=== PATIENT | female | born 1980 | race Caucasian/White ===

== ENCOUNTER 2017-01-24 22:07 | Observation (INO) ==
[2017-01-24] MEDS ORDERED: SODIUM CHLORIDE 1,000 ML IV STA (22:21)
--- NOTE | 2017-01-24 22:25 | ED.PDOC ---
General ED Provider: Dr. SHADIA BYNUM Chief Complaint: Palpitations Stated Complaint: PALPITAION, FEELING FUNNY. DIZZI,. Been drinking today 3 beers. Time Seen by Physician: 22:23 Mode of Arrival: Walk-In Information Source: Patient Primary Care Provider: HARLEY MARIEE Nursing and Triage Documentation Reviewed and Agree: Yes Cardiovascular Complaint Exam - Palpitations Complaint/Exam Symptoms Are: Still present Timing: Constant Initial Severity: Moderate Current Severity: Moderate Character: Reports: Fast Aggravating: Reports: None Alleviating: Reports: None Associated Signs and Symptoms: Reports: Dizziness. Denies: Lightheadedness, Syncope, Chest pain, Shortness of breath, Diaphoresis, Nausea, Vomiting Related Surgical History: Reports: None Cardiac Risk Factors: Reports: None Pulmonary Embolism Risk Factors: Reports: None Atrial Fibrillation Risk Factors: Reports: None Thyroid Exam: Normal Differential Diagnoses: Hypokalemia Quality Indicators for AMI: EKG in 10min. Quality Indicators for Cardiac Chest Pain: EKG in 10min. Review of Systems - Review Of Systems Constitutional: Reports: No symptoms Eyes: Reports: No symptoms Ears, Nose, Mouth, Throat: Reports: No symptoms Respiratory: Reports: No symptoms Cardiac: Reports: Lightheadedness GI: Reports: No symptoms : Reports: No symptoms Musculoskeletal: Reports: No symptoms Skin: Reports: No symptoms Neurological: Reports: No symptoms Endocrine: Reports: No symptoms Hematologic/Lymphatic: Reports: No symptoms All Other Systems: Reviewed and Negative Past Medical History - Past Medical History Previously Healthy: Yes Endocrine: Reports: None Cardiovascular: Reports: None Respiratory: Reports: None Hematological: Reports: None Gastrointestinal: Reports: None Genitourinary: Reports: None Neuro/Psych: Reports: None Musculoskeletal: Reports: None Cancer: Reports: None Last Menstrual Period: PT HAS HAD A HYSTERECTOMY - Surgical History General Surgical History: Reports: Hysterectomy, Appendectomy - Family History Family History: Reports: None - Social History Smoking Status: Current every day smoker, Heavy tobacco smoker Smoking Cessation Counseling Time: > 3 min - 10 min Hx Substance Use: No Alcohol Screening: Occasionally - Immunizations Tetanus Shot up to Date: Yes Physical Exam - Physical Exam Appearance: Ill-appearing, Well-nourished Eyes: DAMIEN, EOMI, Conjunctiva clear ENT: Ears normal, Nose normal, Oropharynx normal Respiratory: Airway patent, Breath sounds clear, Breath sounds equal, Respirations nonlabored Cardiovascular: Tachycardia GI/: Soft, Nontender, No masses, Bowel sounds normal, No Organomegaly Musculoskeletal: Normal strength, ROM intact, No edema, No calf tenderness Skin: Warm, Dry, Normal color Neurological: Sensation intact, Motor intact, Reflexes intact, Cranial nerves intact, Alert, Oriented Psychiatric: Affect appropriate, Mood appropriate Interpretation - Radiology Interpretation Radiology Interpretation By: Radiologist Radiology Results: Negative Exam Interpreted: CT Scan Re-Evaluation - Re-Evaluation Time of Re-Evaluation: 00:41 Status: Improved Critical Care Note - Critical Care Note Total Time (mins): 0 Course - Course Hematology/Chemistry: 01/24/17 22:31 01/24/17 22:31 Orders, Labs, Meds: Lab Review 01/24/17 01/24/17 22:20 22:31 WBC 10.93 H RBC 4.84 Hgb 15.1 Hct 42.7 MCV 88.2 MCH 31.2 H MCHC 35.4 RDW Coeff of Johnnie 12.7 Plt Count 356 Immature Gran % (Auto) 0.4 Neut % (Auto) 44.3 Lymph % (Auto) 43.4 Alger % (Auto) 6.8 Eos % (Auto) 4.4 Baso % (Auto) 0.7 Immature Gran # (Auto) 0.0 Neut # 4.9 Lymph # 4.7 H Alger # 0.7 Eos # 0.5 Baso # 0.1 D-Dimer (Manual) 129.21 Sodium 142 Potassium 3.0 L Chloride 106 Carbon Dioxide 26 Anion Gap 13.0 BUN 8 Creatinine 0.80 Estimated GFR (MDRD) 81.00 BUN/Creatinine Ratio 10.00 Glucose 96 Calcium 9.7 Total Bilirubin 0.25 AST 20 ALT 18 Alkaline Phosphatase 74 Total Creatine Kinase 80 Troponin I < 0.0100 Total Protein 7.4 Albumin 4.2 Globulin 3.2 Albumin/Globulin Ratio 1.31 TSH 3.569 Urine Color Yellow Urine Clarity Clear Urine pH 5.5 Ur Specific [place] <=1.005 Urine Protein Negative Urine Glucose (UA) Negative Urine Ketones Negative Urine Blood Negative Urine Nitrite Negative Urine Bilirubin Negative Urine Urobilinogen 0.2 Ur Leukocyte Esterase Negative Urine Opiates Screen Negative Ur Oxycodone Screen Negative Urine Methadone Screen Negative Ur Propoxyphene Screen Negative Ur Barbiturates Screen Negative U Tricyclic Antidepress Negative Ur Phencyclidine Scrn Negative Ur Amphetamine Screen Negative U Methamphetamines Scrn Negative U Benzodiazepines Scrn Negative Urine Cocaine Screen Negative U Cannabinoids Screen Positive Plasma/Serum Alcohol 98.5 H Orders Category Date Time Status EKG-(ED ONLY) Stat CARDIO 01/24/17 22:21 Completed ED IV/MEDIPORT/POWERPORT .ONCE EMERGENCY 01/24/17 22:21 Active BLOOD ALCOHOL Stat LAB 01/24/17 22:31 Completed CBC W/ AUTO DIFF Stat LAB 01/24/17 22:31 Completed COMPREHENSIVE METABOLIC PANEL Stat LAB 01/24/17 22:31 Completed CREATINE KINASE Stat LAB 01/24/17 22:31 Completed D-DIMER Stat LAB 01/24/17 22:31 Completed DRUG SCREEN, URINE, RAPID Stat LAB 01/24/17 22:20 Completed THYROID STIMULATING HORMONE Stat LAB 01/24/17 22:31 Completed TROPONIN I Stat LAB 01/24/17 22:31 Completed URINALYSIS C & S IF INDICATED Stat LAB 01/24/17 22:20 Completed 0.9 % Sodium Chloride [Saline Flush] MEDS 01/24/17 22:21 Ordered 1 syr IVF PRN PRN Diltiazem HCl Inj [Cardizem Inj] MEDS 01/24/17 22:34 Discontinued 15 mg IVP ONCE STA Lorazepam Inj [Ativan] MEDS 01/24/17 23:31 Discontinued 1 mg IM ONCE STA Lorazepam Inj [Ativan] MEDS 01/24/17 22:59 Discontinued 2 mg .ROUTE .STK-MED ONE Sodium Chloride 0.9% [Sodium Chloride] 1,000 ml MEDS 01/24/17 22:21 Active IV 125 mls/hr CHEST, 1V AP ONLY Stat RADS 01/24/17 22:[address] HEAD W/O CONTRAST Stat RADS 01/24/17 23:06 Completed Medications Generic Name Dose Route Start Last Admin Trade Name Freq PRN Reason Stop Dose Admin Sodium Chloride 1,000 mls @ 125 mls/hr 01/24/17 22:21 01/24/17 22:53 Sodium Chloride IV 01/25/17 06:20 125 mls/hr .Q8H STA Administration Sodium Chloride 1 syr 01/24/17 22:21 Saline Flush IVF PRN PRN To flush IV Discontinued Medications Generic Name Dose Route Start Last Admin Trade Name Freq PRN Reason Stop Dose Admin Diltiazem HCl 15 mg 01/24/17 22:34 01/24/17 22:53 Cardizem Inj IVP 01/24/17 22:35 15 mg ONCE STA Administration Lorazepam 1 mg 01/24/17 23:31 01/24/17 23:33 Ativan IM 01/24/17 23:32 Not Given ONCE STA Vital Signs: Temp Pulse Resp BP Pulse Ox 01/24/17 22:10 97.3 F L 150 H 24 124/71 98 ANNE-MARIE Risk Score ANNE-MARIE Risk Score: Risk Score Odds of by 30D 0 0.1 (0.1-0.2) 1 0.3 (0.2-0.3) 2 0.4 (0.3-0.5) 3 0.7 (0.6-0.9) 4 1.2 (1.0-1.5) 5 2.2 (1.9-2.6) 6 3.0 (2.5-3.6) 7 4.8 (3.8-6.1) Departure - Departure Time of Disposition: 00:42 Disposition: ADMITTED INPATIENT Discharge Problem: Seizure, Alcoholism Instructions: New-Onset Seizure in Adults (ED) Condition: Stable Pt referred to PMD for follow-up: No Allergies/Adverse Reactions: Allergies No Known Allergies Allergy (Verified 01/24/17 22:15) Home Medications: Ambulatory Orders Dextroamphetamine/Amphetamine [Adderall 30 Mg Tablet] 30 mg PO DAILY #7 Bupropion HCl [Wellbutrin Sr] 150 mg PO QAM #30 01/04/17 Disposition Discussed With: Patient, Family
[2017-01-24 22:32] LABS: BASOPHILS # (AUTO) 0.1 K/uL (0-0.2); BASOPHILS % (AUTO) 0.7 % (0.0-3.0); EOSINOPHILS # (AUTO) 0.5 K/ul (0.0-0.7); EOSINOPHILS % (AUTO) 4.4 % (0.0-7.0); HEMATOCRIT 42.7 % (37.0-47.0); HEMOGLOBIN 15.1 g/dl (12.0-16.0); IMMATURE GRANULOCYTE % (AUTO) 0.4 % (0.0-5.0); LYMPHOCYTES # (AUTO) 4.7 K/uL (0.60-3.4); LYMPHOCYTES % (AUTO) 43.4 (10.0-50.0); MEAN CORPUSCULAR HEMOGLOBIN 31.2 pg (27.0-31.0); MEAN CORPUSCULAR HGB CONC 35.4 (31.8-35.4); MEAN CORPUSCULAR VOLUME 88.2 fl (81.0-99.0); MONOCYTES # (AUTO) 0.7 K/uL (0.4-2.0); MONOCYTES % (AUTO) 6.8 (0-10); NEUTROPHILS # (AUTO) 4.9 K/ul (2.0-6.9); NEUTROPHILS % (AUTO) 44.3; PLATELET COUNT 356 10^3/uL (140-440); RED BLOOD COUNT 4.84 10^6/ul (4.20-5.40); WHITE BLOOD COUNT 10.93 K/ul (4.6-10.2)
[2017-01-24] MEDS ORDERED: CARDIZEM INJ IVP STA (22:34)
[2017-01-24 22:35] LABS: BILIRUBIN,URINE Negative (NEGATIVE); KETONES,URINE Negative (NEGATIVE); LEUKOCYTE ESTERASE ,URINE Negative (NEGATIVE); NITRITE,URINE Negative (NEGATIVE); PH,URINE 5.5 (5-9); PROTEIN,URINE Negative (NEGATIVE); URINE, BLOOD Negative (NEGATIVE)
[2017-01-24 22:36] LABS: ADD URINE MICROSCOPIC NO
[2017-01-24 22:51] LABS: COCAIN SCREEN,URINE NEGATIVE (NEGATIVE)
[2017-01-24] MEDS ORDERED: ATIVAN ONE (22:59)
[2017-01-24 23:12] LABS: ALANINE AMINOTRANSFERASE 18 U/L (12-78); ALBUMIN 4.2 g/dL (3.4-5.0); ALBUMIN/GLOBULIN RATIO 1.31; ALKALINE PHOSPHATASE 74 U/L (42-98); ASPARTATE AMINO TRANSFERASE 20 U/L (15-37); BILIRUBIN,TOTAL 0.25 mg/dL (0.00-1.20); BLOOD UREA NITROGEN 8 mg/dL (7-18); CALCIUM 9.7 mg/dL (8.2-10.2); CARBON DIOXIDE 26 mmol/L (21-32); CHLORIDE 106 mmol/L (98-107); CREATINE KINASE 80 U/L; GLUCOSE 96 mg/dL (70-110); SODIUM 142 mmol/L (136-145); TOTAL PROTEIN 7.4 g/dL (6.4-8.2)
[2017-01-24] MEDS ORDERED: ATIVAN IM STA (23:31)
--- NOTE | 2017-01-25 00:29 | CT ---
EXAM: CT brain without contrast HISTORY: Seizure activity TECHNIQUE: CT of the brain without intravenous contrast FINDINGS: There is no acute hemorrhage midline shift or mass effect. No hydrocephalus or abnormal extra-axial fluid collection. No significant parenchymal attenuation abnormality. The bony cranium appears normal. The visualized paranasal sinuses are clear. Soft tissues without significant abnorm ality. IMPRESSION: 1. CT of the brain within normal limits.
--- NOTE | 2017-01-25 00:31 | DI ---
Exam: Chest one-view History: Seizure activity FINDINGS: Normal cardiomediastinal contours. Normal pulmonary vasculature. No infiltrative opacit ies. No chest wall abnormality. Impression: Normal single view chest.
[2017-01-25] MEDS ORDERED: POTASSIUM CHL 10% ORAL SOL PO STA (00:50)
[2017-01-25] MEDS ORDERED: ATIVAN IVP PRN (01:01)
[2017-01-25 02:19] VITALS: BMI 23.4
[2017-01-25] MEDS: SODIUM CHLORIDE 1,000 ML IV SCH ×2 (02:29→10:08)
[2017-01-25] MEDS ORDERED: ZOFRAN 4 MG/2 ML ONE (02:53)
[2017-01-25 09:25] LABS: SERUM PREGNANCY INTERNAL QC INTERNAL QC VALID
[2017-01-25] MEDS: ZOFRAN 4 MG/2 ML IVP PRN ×2 (10:32→17:55)
[2017-01-25] MEDS ORDERED: MYLANTA SUSP PO PRN (17:44)
[2017-01-25] MEDS: ATIVAN PO PRN (19:39)
[2017-01-25] MEDS: K-DUR PO SCH (20:52)
[2017-01-26] MEDS: SODIUM CHLORIDE 1,000 ML IV SCH ×2 (00:50→16:16)
[2017-01-26] MEDS: ZOFRAN 4 MG/2 ML IVP PRN ×2 (05:43→12:51)
[2017-01-26 06:01] LABS: ANION GAP 12.6; BUN/CREATININE RATIO 7.89; CALCIUM 9.4 mg/dL (8.2-10.2); CREATININE 0.76 mg/dL (0.60-1.30); POTASSIUM 3.6 mmol/L (3.5-5.10)
[2017-01-26] MEDS: ATIVAN PO PRN ×2 (08:30→12:50)
[2017-01-26] MEDS ORDERED: PROTONIX PO STA (08:46)
[2017-01-26] MEDS: K-DUR PO SCH (09:00)
--- NOTE | 2017-01-26 09:35 | HP ---
SOURCE: The source of this information is prior knowledge of the patient, discussion with she and her and review of her current records. She is somewhat vague in details. PATIENT PROFILE: Ms. Iqbal is a 36-year-old female resident of [facility]. She was cooperative. CHIEF COMPLAINT: "She had a seizure." BRIEF HISTORY OF PRESENT ILLNESS: She is brought to the emergency room because her said she mentioned something about chest pain. Her heart rate seemed to be faster. He also says in retrospect that she wasn't acting or responding normally. She was taken to the X -ray Department and apparently when standing for her chest x-ray she had an episode of jerking or posturing. The ER called it a possible seizure. Dr. Meyer was covering and it was all discussed with him. He elected not to put her on medications but to stop her Adderall and her Wellbutrin; apparently medicines that she was taking on and off sporadically or in some fashion. Medicines that she had also been getting from Dr. Alicia, the psychiatrist. Her days spent in the Special Care Unit has been one of frustration on her part; frequently verbalizing with the nurses being dissatisfied with many things. It does not sound like she was postictal. PAST HISTORY: CHILDHOOD: Unremarkable. ALLERGIES/INTOLERANCE: DOXYCYCLINE (VOMITING), HYDROCODONE (UNKNOWN REACTION) CURRENT MEDICATIONS: (HOME) 1. Dextroamphetamine/Amphetamine (Adderall 30 mg) p.o. daily 2. Buproprion 150 mg p.o. q.a.m. HOSPITALIZATIONS/SURGERIES/PROCEDURES: [facility] 04/22 through 04/27/08 headache and aseptic meningitis; [facility] again 04/18 through 04/30/13 for left otitis externa/interna that was very significant and took some time to heal up. She had exploratory lap by Dr. Lang" in [place] years ago, STEVEN and [facility]SO for benign reasons, Dr. Prado at [facility] in January 2004 and exploratory lap after that with details unavailable. She is 4, Para 3, AB 1. HABITS: Smoker since age 18, at least than one pack per day with alcohol on a daily basis. No more than 2 to 3 and denies intoxication. She denies significant drugs though her drug screen was positive for THC. SOCIAL HISTORY: She has three children, one step; she has been currently in 2010 and earlier children were from previous arrangement. She does not work outside the home. FAMILY HISTORY: Diabetes in maternal uncle, heart disease in maternal uncle. No other family tendancies. REVIEW OF SYSTEMS: GENERAL: She says her weight has been stable and there has been no fever. INTEGUMENT: Denies open sores or wounds. HEENT: Occasional nasal congestion. No visual change. NECK: No mass or pain. CHEST: Denies cough or wheeze. CARDIOVASCULAR: Denies exertional chest pain, ankle edema. GI: Denies melena or hematochezia. She has been nauseous since this admission. : Denies dysuria. MUSCULOSKELETAL/NEUROLOGIC: No red, swollen joints. PSYCHIATRIC: Admits to chronic anxiety and depression; nonsuicidal depression. PHYSICAL EXAMINATION: VITALS: Height 5', weight 130, pulse 72, respirations 12, BP 130/82. GENERAL: Slightly older than stated age white female in no obvious distress. INTEGUMENT: Multiple tattoos. Nonicteric. Mucous membranes moist. No ankle edema. No signs of trauma. HEENT: Facial symmetry. Pupils equal, round, extraocular movements intact without nystagmus. NECK: No visible lymphadenopathy, thyromegaly, mass seen or felt and supple. CHEST: Clear. CARDIOVASCULAR: S1, S2 without murmur. No carotid bruits. Distal pulse intact. GI: Soft. No rebound, guarding, mass or tenderness. MUSCULOSKELETAL/NEUROLOGIC: No red or swollen joints, moves all four quadrants equal. Entry Level Civil Engineer are equal. Finger to nose intact. Symmetric facies. Speech is clear. PSYCHIATRIC: Oriented times three. No significant obvious anxiety or depression manifestations of facies and interaction. ASSESSMENT/PROBLEM LIST: 0. 36-year-old white female. 1. Allergies/intolerances see above. 2. Procedural history see above. 3. Family history see above. 4. Tobacco/nicotine abuse/addiction. 5. Alcohol use. 6. THC use. 7. 4, Para 3, AB 1. 8. Surgical menopause. 9. Chronic depression. 10. Chronic anxiety. 11. Allergic rhinitis. 12. Chronic headaches. 13. ADD - patient opinion. REASON FOR ADMISSION: # Palpitations # Mood change # Spell; described as some jerking and posturing but not very classic for seizure (the only issue was that she was using Wellbutrin). # Nausea # Hypopotassemia PLAN: 1. We are going to keep another night and continue fluids, repeat potassium after oral replacement in the morning. 2. We are going to try and get an EEG to at least establish it looks normal. 3. I am not going to suggest that she continue any of her medications that were mentioned on admission for now. DAMIAN
[2017-01-26 14:45] VITALS: BP 126/80; TEMP 98.1
[2017-01-26] MEDS ORDERED: PROTONIX PO SCH (17:00)
--- NOTE | 2017-01-26 17:21 | MRI ---
EXAM: Brain MRI with and without contrast. HISTORY: Seizure. COMPARISON: Head CT 01/24/2017. TECHNIQUE: Multiplanar, multisequence MR images were acquired of the brain before and after adminis tration of intravenous contrast. FINDINGS: The midline structures are central and the craniocervical junction is unremarkable. The ventricles and sulci are normal in size and configuration. There are no abnormal extra-axial fluid collections. The brain parenchyma has no diffusion restriction to suggest acute hypoperfusion or infarction. The re are a few punctate FLAIR hyperintensities in the supratentorial white matter consistent with mini mal leukomalacia. Thin section coronal FLAIR images through the hippocampi show they are normal and equal in size and signal intensity bilaterally. After administration of gadolinium, no enhancing l esions are demonstrated. There are no heterotopias or migrational anomalies. The corpus callosum i s normal in configuration. The pituitary gland is unremarkable. There are no intraorbital masses. Mild to moderate mucosal thickening is present in the right anter ior and left ethmoid air cells. There is mild mucosal thickening in both maxillary antra and minor mucosal thickening in the sphenoid sinus. Moderate adenoidal hypertrophy is present which is consid ered normal for the patient's age. Middle ears and mastoids are clear. No abnormal contrast enhanc ement is present in the internal auditory canals or labyrinthine structures. Flow voids are present in the major intracranial arteries and dural venous sinuses. IMPRESSION: 1. No intracranial mass, mesial temporal sclerosis or acute cerebral infarct. 2. Minimal leukomalacia which is nonspecific.
--- NOTE | 2017-01-29 11:20 | DS ---
PATIENT PROFILE: Ms. Iqbal is a 36-year-old female resident of [facility]. She was cooperative. CHIEF COMPLAINT: "She had a seizure." BRIEF HISTORY OF PRESENT ILLNESS: She is brought to the emergency room because her said she mentioned something about chest pain. Her heart rate seemed to be faster. He also says in retrospect that she wasn't acting or responding normally. She was taken to the X -ray Department and apparently when standing for her chest x-ray she had an episode of jerking or posturing. The ER called it a possible seizure. Dr. Meyer was covering and it was all discussed with him. He elected not to put her on medications but to stop her Adderall and her Wellbutrin; apparently medicines that she was taking on and off sporadically or in some fashion. Medicines that she had also been getting from Dr. Alicia, the psychiatrist. Her days spent in the Special Care Unit has been one of frustration on her part; frequently verbalizing with the nurses being dissatisfied with many things. It does not sound like she was postictal. PAST HISTORY: CHILDHOOD: Unremarkable. ALLERGIES/INTOLERANCE: DOXYCYCLINE (VOMITING), HYDROCODONE (UNKNOWN REACTION) CURRENT MEDICATIONS: (HOME) 1. Dextroamphetamine/Amphetamine (Adderall 30 mg) p.o. daily 2. Bupropion 150 mg p.o. q.a.m. HOSPITALIZATIONS/SURGERIES/PROCEDURES: [facility] 04/22 through 04/27/08 headache and aseptic meningitis; [facility] again 04/18 through 04/30/13 for left otitis externa/interna that was very significant and took some time to heal up. She had exploratory lap by Dr. Lang" in [place] years ago, [facility] and Molly for benign reasons, Dr. Prado at [facility] in January 2004 and exploratory lap after that with details unavailable. She is 4, Para 3, AB 1. HABITS: Smoker since age 18, at least than one pack per day with alcohol on a daily basis. No more than 2 to 3 and denies intoxication. She denies significant drugs though her drug screen was positive for THC. SOCIAL HISTORY: She has three children, one step; she has been currently in 2010 and earlier children were from previous arrangement. She does not work outside the home. FAMILY HISTORY: Diabetes in maternal uncle, heart disease in maternal uncle. No other family tendancies. REVIEW OF SYSTEMS: GENERAL: She says her weight has been stable and there has been no fever. INTEGUMENT: Denies open sores or wounds. HEENT: Occasional nasal congestion. No visual change. NECK: No mass or pain. CHEST: Denies cough or wheeze. CARDIOVASCULAR: Denies exertional chest pain, ankle edema. GI: Denies melena or hematochezia. She has been nauseous since this admission. : Denies dysuria. MUSCULOSKELETAL/NEUROLOGIC: No red, swollen joints. PSYCHIATRIC: Admits to chronic anxiety and depression; nonsuicidal depression. PHYSICAL EXAMINATION: VITALS: Height 5', weight 130, pulse 72, respirations 12, BP 130/82. GENERAL: Slightly older than stated age white female in no obvious distress. INTEGUMENT: Multiple tattoos. Nonicteric. Mucous membranes moist. No ankle edema. No signs of trauma. HEENT: Facial symmetry. Pupils equal, round, extraocular movements intact without nystagmus. NECK: No visible lymphadenopathy, thyromegaly, mass seen or felt and supple. CHEST: Clear. CARDIOVASCULAR: S1, S2 without murmur. No carotid bruits. Distal pulse intact. GI: Soft. No rebound, guarding, mass or tenderness. MUSCULOSKELETAL/NEUROLOGIC: No red or swollen joints, moves all four quadrants equal. Spd Tech are equal. Finger to nose intact. Symmetric facies. Speech is clear. PSYCHIATRIC: Oriented times three. No significant obvious anxiety or depression manifestations of facies and interaction. ASSESSMENT/PROBLEM LIST: 0. 36-year-old white female. 1. Allergies/intolerances see above. 2. Procedural history see above. 3. Family history see above. 4. Tobacco/nicotine abuse/addiction. 5. Alcohol use. 6. THC use. 7. 4, Para 3, AB 1. 8. Surgical menopause. 9. Chronic depression. 10. Chronic anxiety. 11. Allergic rhinitis. 12. Chronic headaches. 13. ADD - patient opinion. REASON FOR ADMISSION: # Palpitations # Mood change # Spell; described as some jerking and posturing but not very classic for seizure (the only issue was that she was using Wellbutrin). # Nausea # Hypopotassemia HOSPITAL COURSE: Ms. Iqbal was kept in the Special Care Unit and did not have any episodes suggesting syncope, near syncope or seizure disorder. She remained with stable vital signs. She remained afebrile. She was unable to tolerate the MRI the first day; MRI of the head with and without contrast the date of discharge and was unremarkable. We attempted to do an EEG and was unable to get one accomplished but felt this could adequately be done next week. Laboratories - had a white count of 10.93, hemoglobin 15.1, unremarkable indices and differential. D. dimer was 129. The first potassium was 3, replaced orally and went to 3.6 and there was no sign of diarrhea. There was frequent nausea, abdominal discomfort, anorexia but an adequate ability to take oral fluids; we elected to follow this as an outpatient. TSH was normal. Free T4 was slightly elevated at 1.35 and not felt to clinically represent hyperthyroidism at this point. test was negative. Urinalysis was clear and initial specific gravity was less than 1.005. Chest x-ray was normal. Telemetry monitoring was unremarkable. She openly admitted that there was significant stress leading to anxiety and depression in her life. She did not feel suicidal. We did acknowlege with her though we think she has not had a seizure, we don't think it is prudent for her right now to use Wellbutrin or in the future and even Adderall for right now. With this constellation and issue she is being discharged to the outpatient arena. DISCHARGE ASSESSMENT/PROBLEM LIST (CHANGED FROM ADMISSION): # Spell - near syncope without cause # Anxiety - chronic with possible acute component # Depression - chronic # Anorexia # Hypopotassemia without obvious cause - replaced # Palpitations with normal rhythm PLAN: 1. Discharge 2. Activity a) Gradually increase as able b) Seizure precautions (no unsupervised exposure to water, heights and machinery that would in any way lead to injury for loss of consciousness) 3. No driving until seen 4. Medications: a) Xanax 0.5 mg t.i.d. p.r.n. #21 called to [facility] b) KCL 20 mEq one by mouth each day #30 with no refill 5. Diet as able 6. Followup a) Dr. Sands - next week, call early next week for appointment b) She is scheduled for outpatient EEG at [facility] on 01/29/2017 at 12:30 PROGNOSIS: Guarded CONDITION: Stable, improved MTDD
== END 2017-01-26 18:35 | disposition home or self-care (01) ==
LOC: ED 22:07 → SCU 01-25 01:02
PROVIDERS: ADMIT Family Medicine; ATTEND Family Medicine
DX: R55 Syncope and collapse (principal); R56.9 Unspecified convulsions; E87.6 Hypokalemia; R00.2 Palpitations; R63.0 Anorexia; R42 Dizziness and giddiness; R00.0 Tachycardia, unspecified; F41.8 Other specified anxiety disorders; R11.0 Nausea; R10.9 Unspecified abdominal pain; F10.20 Alcohol dependence, uncomplicated; F17.200 Nicotine dependence, unspecified, uncomplicated; Z79.899 Other long term (current) drug therapy
CPT/HCPCS: 36415; 80048; 80053; 80306; 80307; 81001; 82550; 84439; 84443; 84484; 84703; 85025; 85379; 93005; 93010; 96360; 96361; 96365; 96366; 96375; 96376; 99285

== ENCOUNTER 2018-02-13 19:33 | Emergency (ER) ==
[2013-02-05 17:35] VITALS: BP 112/77; TEMP 97.4
--- NOTE | 2018-02-13 19:40 | ED.PDOC ---
General ED Provider: Dr. CHANDA CASTELLANOS-ER Chief Complaint: Rash Stated Complaint: ewelina got poison celeste Time Seen by Physician: 19:40 Mode of Arrival: Walk-In Information Source: Patient Primary Care Provider: HARLEY MARIEE Nursing and Triage Documentation Reviewed and Agree: Yes Reviewed sepsis parameters & appropriate labs ordered?: Yes System Inflammatory Response Syndrome: Not Applicable Sepsis Protocol: For patient's 13 years and over: Temp is 96.8 and below OR 101 and greater Pulse >90 BPM Resp >20/minute Acutely Altered Mental Status Are patient's symptoms suggestive of a new infection, such as: -Pneumonia -Skin, Soft Tissue -Endocarditis -UTI -Bone, Joint Infection -Implantable Device -Acute Abdominal Infection -Wound Infection -Meningitis -Blood Stream Catheter Infection -Unknown Skin Complaint Exam - Skin Rash/Itching Complaint/Exam Onset/Duration: 2 days Symptoms Are: Still present Initial Severity: Mild Current Severity: Moderate Potential Exposures: Reports: Plants Aggravating: Reports: None Alleviating: Reports: None Associated Signs and Symptoms: Denies: Difficulty breathing, Fever, Chills Skin Findings: Present: Urticaria, Lesions, Weeping skin Differential Diagnoses: Poison Celeste/[place] Review of Systems - Review Of Systems Constitutional: Reports: No symptoms Eyes: Reports: No symptoms Ears, Nose, Mouth, Throat: Reports: No symptoms Respiratory: Reports: No symptoms Cardiac: Reports: No symptoms GI: Reports: No symptoms : Reports: No symptoms Musculoskeletal: Reports: No symptoms Skin: Reports: Rash Neurological: Reports: No symptoms Endocrine: Reports: No symptoms Hematologic/Lymphatic: Reports: No symptoms All Other Systems: Reviewed and Negative Past Medical History - Past Medical History Previously Healthy: Yes Endocrine: Reports: Unknown Cardiovascular: Reports: Unknown Respiratory: Reports: Unknown Hematological: Reports: Unknown Gastrointestinal: Reports: Unknown Genitourinary: Reports: Unknown Neuro/Psych: Reports: Unknown Musculoskeletal: Reports: Unknown Cancer: Reports: Unknown - Surgical History General Surgical History: Reports: Unknown - Family History Family History: Reports: Unknown Physical Exam - Physical Exam Appearance: Well-appearing, No pain distress, Well-nourished Eyes: DAMIEN, EOMI, Conjunctiva clear ENT: Ears normal, Nose normal, Oropharynx normal Neck: Supple Respiratory: Airway patent Cardiovascular: RRR, Pulses normal, No rub, No murmur GI/: Soft, Nontender, No masses, Bowel sounds normal, No Organomegaly Musculoskeletal: Normal strength, ROM intact, No edema, No calf tenderness Skin: Warm, Dry, Normal color Neurological: Sensation intact, Motor intact, Reflexes intact, Cranial nerves intact, Alert, Oriented Psychiatric: Affect appropriate, Mood appropriate Critical Care Note - Critical Care Note Total Time (mins): 0 Departure - Departure Time of Disposition: 19:41 Disposition: HOME SELF-CARE Discharge Problem: Poison celeste dermatitis Instructions: Poison Celeste (ED) Condition: Good Pt referred to PMD for follow-up: Yes IPMP verified?: No Additional Instructions: prednisone 20mg x 3dasy then 10mgx 2 days then 5mgx 2 days--lidex cream apply tid for rash Disposition Discussed With: Patient, Family
[2018-02-13 19:41] VITALS: BP 125/63; TEMP 98.7; BMI 27.6
[2018-02-13] MEDS ORDERED: DECADRON 4 MG/ML SDV IM STA (19:44)
[2018-02-14 10:36] VITALS: BMI 27.6
== END 2018-02-13 20:01 | disposition home or self-care (01) ==
LOC: MERGE 19:33 → ED 19:33
DX: L23.7 Allergic contact dermatitis due to plants, except food (principal)
CPT/HCPCS: 96372; 99283

== ENCOUNTER 2018-05-08 13:07 | Emergency (ER) ==
[2018-05-08 13:20] VITALS: BP 116/55; TEMP 98.4; BMI 24.5
--- NOTE | 2018-05-08 13:41 | ED.PDOC ---
General ED Provider: Dr. ELIANA MARTIN Chief Complaint: Rash Stated Complaint: rash left fore arm exposed to poison José Manuel Time Seen by Physician: 13:40 (seen with JACQUELYN AT ALL TIMES ) Mode of Arrival: Walk-In Information Source: Patient Exam Limitations: No limitations Primary Care Provider: HARLEY MARIEE Nursing and Triage Documentation Reviewed and Agree: Yes Does patient meet sepsis criteria?: No System Inflammatory Response Syndrome: Not Applicable Sepsis Protocol: For patient's 13 years and over: Temp is 96.8 and below OR 101 and greater Pulse >90 BPM Resp >20/minute Acutely Altered Mental Status Are patient's symptoms suggestive of a new infection, such as: -Pneumonia -Skin, Soft Tissue -Endocarditis -UTI -Bone, Joint Infection -Implantable Device -Acute Abdominal Infection -Wound Infection -Meningitis -Blood Stream Catheter Infection -Unknown Skin Complaint Exam - Skin Rash/Itching Complaint/Exam Onset/Duration: 1 DAY Symptoms Are: Still present Initial Severity: Mild Current Severity: Mild Potential Exposures: Reports: Plants Aggravating: Reports: None Alleviating: Reports: None Associated Signs and Symptoms: Denies: Difficulty breathing, Fever, Chills Skin Findings: Present: Papules, Vesicles Differential Diagnoses: Allergic Reaction, Poison José Manuel/[place] Review of Systems - Review Of Systems Constitutional: Reports: No symptoms Eyes: Reports: No symptoms Ears, Nose, Mouth, Throat: Reports: No symptoms Respiratory: Reports: No symptoms Cardiac: Reports: No symptoms GI: Reports: No symptoms : Reports: No symptoms Musculoskeletal: Reports: No symptoms Skin: Reports: Rash Neurological: Reports: No symptoms Endocrine: Reports: No symptoms Hematologic/Lymphatic: Reports: No symptoms All Other Systems: Reviewed and Negative Past Medical History - Past Medical History Previously Healthy: Yes Endocrine: Reports: None, Unknown Cardiovascular: Reports: None, Unknown Respiratory: Reports: None, Unknown Hematological: Reports: None, Unknown Gastrointestinal: Reports: None, Unknown Genitourinary: Reports: None, Unknown Neuro/Psych: Reports: None, Unknown Musculoskeletal: Reports: Unknown, None Cancer: Reports: None, Unknown Last Menstrual Period: hysterectomy - Surgical History General Surgical History: Reports: Appendectomy, Hysterectomy, Unknown - Family History Family History: Reports: None, Unknown - Social History Smoking Status: Heavy tobacco smoker, Current every day smoker Hx Substance Use: No Alcohol Screening: Occasionally Physical Exam - Physical Exam Appearance: Well-appearing, No pain distress, Well-nourished Eyes: DAMIEN, EOMI, Conjunctiva clear ENT: Ears normal, Nose normal, Oropharynx normal Respiratory: Airway patent, Breath sounds clear, Breath sounds equal, Respirations nonlabored Cardiovascular: RRR, Pulses normal, No rub, No murmur GI/: Soft, Nontender, No masses, Bowel sounds normal, No Organomegaly Musculoskeletal: Normal strength, ROM intact, No edema, No calf tenderness Skin: Warm, Dry (R[employer] WITH POISON JOSÉ MANUEL) Neurological: Sensation intact, Motor intact, Reflexes intact, Cranial nerves intact, Alert, Oriented Psychiatric: Affect appropriate, Mood appropriate Critical Care Note - Critical Care Note Total Time (mins): 0 Course - Course Vital Signs: Temp Pulse Resp BP Pulse Ox 05/08/18 13:08 98.4 F 74 18 116/55 L 98 Departure - Departure Time of Disposition: 13:41 Disposition: HOME SELF-CARE Discharge Problem: Pruritic rash, Poison josé manuel dermatitis Instructions: Poison José Manuel (ED) Condition: Good Pt referred to PMD for follow-up: Yes IPMP verified?: No Additional Instructions: Please call your Family Physician as soon as possible to schedule a follow-up appointment. Allergies/Adverse Reactions: Allergies No Known Allergies Allergy (Verified 05/08/18 13:13) Home Medications: Ambulatory Orders 1 [No Reported Medications] 05/08/18
== END 2018-05-08 13:52 | disposition home or self-care (01) ==
LOC: ED 13:07
DX: L23.7 Allergic contact dermatitis due to plants, except food (principal); F17.210 Nicotine dependence, cigarettes, uncomplicated
CPT/HCPCS: 99282

== ENCOUNTER 2019-02-06 14:15 | Emergency (ER) ==
[2019-02-06 14:24] VITALS: BP 106/72; TEMP 98.6; BMI 25.0
--- NOTE | 2019-02-06 14:38 | ED.PDOC ---
General ED Provider: Dr. VERONICA ADAMS Chief Complaint: Bite Stated Complaint: 28 y old female with tick boite on a left foot between toes and subsequent headache, Time Seen by Physician: 14:35 Mode of Arrival: Walk-In Information Source: Patient Exam Limitations: No limitations Primary Care Provider: HARLEY MARIEE Nursing and Triage Documentation Reviewed and Agree: Yes Does patient meet sepsis criteria?: No System Inflammatory Response Syndrome: Not Applicable Sepsis Protocol: For patient's 13 years and over: Temp is 96.8 and below OR 101 and greater Pulse >90 BPM Resp >20/minute Acutely Altered Mental Status Are patient's symptoms suggestive of a new infection, such as: -Pneumonia -Skin, Soft Tissue -Endocarditis -UTI -Bone, Joint Infection -Implantable Device -Acute Abdominal Infection -Wound Infection -Meningitis -Blood Stream Catheter Infection -Unknown Skin Complaint Exam - Skin/Soft Tissue Complaint/Exam Onset/Duration: two days Symptoms Are: Still present Initial Severity: Mild Current Severity: None Character: Reports: Redness Aggravating: Reports: None Alleviating: Reports: None Associated Signs and Symptoms: Reports: Itching Related History: Reports: Similar episode Related Surgical History: Reports: None Recent Exposure to Others w/Similar Symptoms: No Skin Findings: Present: Erythema, Induration Differential Diagnoses: Cellulitis, Infection, Tick-Borne Illness Review of Systems - Review Of Systems Constitutional: Reports: No symptoms Eyes: Reports: No symptoms Ears, Nose, Mouth, Throat: Reports: No symptoms Respiratory: Reports: No symptoms Cardiac: Reports: No symptoms GI: Reports: No symptoms : Reports: No symptoms Musculoskeletal: Reports: No symptoms Neurological: Reports: No symptoms Endocrine: Reports: No symptoms Hematologic/Lymphatic: Reports: No symptoms All Other Systems: Reviewed and Negative Past Medical History - Past Medical History Previously Healthy: Yes Endocrine: Reports: None, Unknown Cardiovascular: Reports: None, Unknown Respiratory: Reports: None, Unknown Hematological: Reports: None, Unknown Gastrointestinal: Reports: None, Unknown Genitourinary: Reports: None, Unknown Neuro/Psych: Reports: None, Unknown Musculoskeletal: Reports: Unknown, None Cancer: Reports: None, Unknown Last Menstrual Period: N/A - Surgical History General Surgical History: Reports: Appendectomy, Hysterectomy, Unknown - Family History Family History: Reports: None, Unknown - Social History Smoking Status: Heavy tobacco smoker, Current every day smoker Hx Substance Use: Yes (2000 MARIJUANAS) Alcohol Screening: Occasionally - Immunizations Tetanus Shot up to Date: Yes Physical Exam - Physical Exam Appearance: Well-appearing Ill-appearing: None Pain Distress: None Eyes: DAMIEN, EOMI, Conjunctiva clear ENT: Ears normal, Nose normal, Oropharynx normal Neck: Supple Respiratory: Airway patent, Breath sounds clear, Breath sounds equal Cardiovascular: RRR, Pulses normal, No rub, No murmur GI/: Soft, Nontender, No masses, Bowel sounds normal, No Organomegaly Musculoskeletal: Normal strength, ROM intact, No edema, No calf tenderness Skin: Warm, Dry, Normal color Neurological: Sensation intact Psychiatric: Affect appropriate Critical Care Note - Critical Care Note Total Time (mins): 0 Course - Course Vital Signs: Temp Pulse Resp BP Pulse Ox 02/06/19 14:16 98.6 F 80 20 106/72 95 Departure - Departure Time of Disposition: 14:46 Disposition: HOME SELF-CARE Discharge Problem: Tick bite Instructions: Insect Bite or Sting (ED) Condition: Good Pt referred to PMD for follow-up: Yes IPMP verified?: No Allergies/Adverse Reactions: Allergies No Known Allergies Allergy (Verified 02/06/19 14:44) Home Medications: Ambulatory Orders Quetiapine Fumarate [Seroquel] 50 mg PO BID 12/27/18 Disposition Discussed With: Patient, Family
[2019-02-06] MEDS ORDERED: TORADOL IM STA (14:45)
== END 2019-02-06 15:25 | disposition home or self-care (01) ==
LOC: ED 14:15
DX: S90.862A Insect bite (nonvenomous), left foot, initial encounter (principal); R51 Headache; L29.9 Pruritus, unspecified; L53.9 Erythematous condition, unspecified; W57.XXXA Bitten or stung by nonvenomous insect and other nonvenomous arthropods, initial encounter; F17.210 Nicotine dependence, cigarettes, uncomplicated
CPT/HCPCS: 96372; 99282